=== PATIENT | male | born 1945 | race Caucasian/White ===

== ENCOUNTER → 2021-06-22 11:22 | Outpatient (BNVA) | payer MEDICARE, SELFPAY | PROVIDERS: Family Provider Family Medicine; PCP Family Medicine; Visit Provider Family Medicine | DX: U07.1 COVID-19 (principal); J18.9 Pneumonia, unspecified organism | CPT/HCPCS: 71046; 87071; 87400; 87880 ==

== ENCOUNTER → 2021-07-19 08:39 | Outpatient (BNVA) | payer MEDICARE, SELFPAY | PROVIDERS: Family Provider Family Medicine; PCP Family Medicine; Visit Provider Dermatology | DX: I50.31 Acute diastolic (congestive) heart failure (principal) | CPT/HCPCS: 80053; 85025 ==

== ENCOUNTER → 2021-08-09 10:43 | Outpatient (BNVA) | payer MEDICARE, SELFPAY | PROVIDERS: Family Provider Family Medicine; PCP Family Medicine; Visit Provider Family Medicine | DX: I10 Essential (primary) hypertension (principal); R60.0 Localized edema | CPT/HCPCS: 80053 ==

== ENCOUNTER → 2021-12-14 14:19 | Outpatient (BNVA) | payer MEDICARE, SELFPAY | PROVIDERS: Family Provider Family Medicine; PCP Family Medicine; Referring Provider Family Medicine; Visit Provider Specialist | DX: G56.03 Carpal tunnel syndrome, bilateral upper limbs (principal); G56.23 Lesion of ulnar nerve, bilateral upper limbs | CPT/HCPCS: 95910; 95913 ==